=== PATIENT | male | born 1950 | race Caucasian/White ===

== ENCOUNTER 2017-02-21 15:12 | Inpatient (IN) | payer BC ==
[~2017-02-21] VITALS: Ht 177.8 cm; Wt 89.5 kg
[2017-02-21 15:42] LABS: BASE EXCESS -1.2 mEq/L (-3 to +3); BICARBONATE 24.8 mEq/L (22-26); COMMENTS - BLOOD GASES A+C+; DEVICE NC; METHEMOGLOBIN 0.9 % (0-1.5); O2 FLOW 9 L/MIN; PCO2 45 mm Hg (35-45); PO2 75 mm Hg (80-100); SITE RR; TOTAL RESP RATE 28 resp/min; pH 7.35 (7.35-7.45)
[2017-02-21 15:44] LABS: EOSINOPHIL (%) 0.4 % (0-5); EOSINOPHIL COUNT 0.1 K/uL (0-0.3); HEMATOCRIT 49.9 % (38.0-50.0); IMMATURE GRANULOCYTE (%) 0.4 % (0.0-0.7); IMMATURE GRANULOCYTE COUNT 0.1 K/uL; INSTRUMENT ABS NEUTROPHIL CT 10.3 K/uL; LYMPHOCYTE COUNT 1.8 K/uL (1.0-2.8); MCH 31.1 PG (29.0-34.0); MCHC 33.1 G/DL (30.0-36.0); MEAN PLAT.VOLUME 8.9 uM^3 (9.0-12.4); MONOCYTE (%) 12.2 % (3-12); MONOCYTE COUNT 1.7 K/uL (0-0.8); NEUTROPHIL (%) 73.7 % (45-76); NEUTROPHIL COUNT 10.3 K/uL (1.8-6.4); PLATELET COUNT 238 K/uL (156-360); RBC DIS.WIDTH-CV 13.6 % (11.8-14.6); RBC DIS.WIDTH-SD 47.1 % (39-53); RED BLOOD COUNT 5.31 M/uL (4.00-5.50)
[2017-02-21 15:47] LABS: CREATININE 0.7 mg/dL (0.6-1.3); POTASSIUM 4.3 mEq/L (3.7-5.4)
[2017-02-21 15:49] LABS: INTER. NORMALIZED RATIO 1.1; PROTHROMBIN TIME 12.9 SEC (10.2-12.9)
[2017-02-21 15:52] LABS: PTT 33.9 SEC (25-37)
[2017-02-21 15:54] LABS: CHLORIDE 100 mEq/L (99-109); POTASSIUM 4.2 mEq/L (3.7-5.4); SODIUM 135 mEq/L (136-147)
[2017-02-21 15:56] LABS: GLUCOSE 100 mg/dL (70-99)
[2017-02-21 15:57] LABS: ANION GAP 11 MEQ/L (2-14)
[2017-02-21 16:00] LABS: GFR ESTIMATE (CALCULATED) > 59 mL/min/
[2017-02-21 16:01] LABS: UREA NITROGEN (BUN) 10 mg/dL (9-23)
[2017-02-21 16:02] LABS: CREATINE KINASE 132 IU/L (1-294); TOTAL CK 132 IU/L (1-294)
[2017-02-21 16:04] LABS: TROP-I INTERPRETATION NEGATIVE; TROPONIN-I 0.02 ng/mL (0.0-0.30)
[2017-02-21 16:08] LABS: CK-MB 4.5 ng/mL (0.0-4.9)
[2017-02-21] MEDS ORDERED: LITE COAT ASPI325 M1 PO (17:50)
[2017-02-21] MEDS ORDERED: BENADRYL25 MG PO (17:50)
[2017-02-21 22:38] LABS: TROP-I INTERPRETATION NEGATIVE; TROPONIN-I 0.02 ng/mL (0.0-0.30)
[2017-02-22 04:01] LABS: HEMATOCRIT 47.2 % (38.0-50.0); MCH 31.4 PG (29.0-34.0); MCHC 33.5 G/DL (30.0-36.0); MCV 93.8 FL (86-99); MEAN PLAT.VOLUME 9.3 uM^3 (9.0-12.4); PLATELET COUNT 194 K/uL (156-360); RBC DIS.WIDTH-CV 13.9 % (11.8-14.6); RBC DIS.WIDTH-SD 48.1 % (39-53); RED BLOOD COUNT 5.03 M/uL (4.00-5.50); WHITE BLOOD COUNT 11.1 K/uL (4.1-10.2)
[2017-02-22 04:11] LABS: CHLORIDE 100 mEq/L (99-109); POTASSIUM 4.5 mEq/L (3.7-5.4); SODIUM 134 mEq/L (136-147)
[2017-02-22 04:14] LABS: ANION GAP 9 MEQ/L (2-14)
[2017-02-22 04:16] LABS: GFR ESTIMATE (CALCULATED) > 59 mL/min/
[2017-02-22 04:17] LABS: GLUCOSE 197 mg/dL (70-99); UREA NITROGEN (BUN) 13 mg/dL (9-23)
[2017-02-22 04:23] LABS: TROP-I INTERPRETATION NEGATIVE; TROPONIN-I 0.01 ng/mL (0.0-0.30)
[2017-02-22 04:44] LABS: HDL CHOLESTEROL 55 MG/DL (Desirable>=40); LDL CHOLESTEROL 75 mg/dL (Desirable<100); NON-HDL CHOLESTEROL 88 mg/dL (Desirable<160); TOTAL CHOLESTEROL 143 mg/dL (Desirable<200); TRIGLYCERIDES 64 MG/DL (Normal: <150)
[2017-02-22 10:15] LABS: ADD MIUA? NO; BILIRUBIN NEGATIVE; BLOOD NEGATIVE; COLOR AMBER ((YELLOW)); GLUCOSE (STRIP) NEGATIVE; KETONES NEGATIVE; LEUKOCYTES NEGATIVE; NITRITE NEGATIVE; PROTEIN (STRIP) 30; SPECIFIC GRAVITY 1.026 (1.000-1.030); UCUL ADDED? NO
[2017-02-22 15:43] VITALS: BP 129/69
[2017-02-22 20:22] VITALS: BP 109/64
[2017-02-22 22:20] VITALS: BP 127/86
[2017-02-23 03:18] VITALS: BP 130/85
[2017-02-23 06:11] LABS: EOSINOPHIL (%) 0.1 % (0-5); HEMATOCRIT 45.6 % (38.0-50.0); IMMATURE GRANULOCYTE (%) 0.7 % (0.0-0.7); IMMATURE GRANULOCYTE COUNT 0.1 K/uL; INSTRUMENT ABS NEUTROPHIL CT 15.3 K/uL; LYMPHOCYTE COUNT 0.3 K/uL (1.0-2.8); MCHC 33.1 G/DL (30.0-36.0); MCV 96.6 FL (86-99); MEAN PLAT.VOLUME 9.6 uM^3 (9.0-12.4); MONOCYTE (%) 5.2 % (3-12); MONOCYTE COUNT 0.9 K/uL (0-0.8); NEUTROPHIL COUNT 15.3 K/uL (1.8-6.4); PLATELET COUNT 220 K/uL (156-360); RBC DIS.WIDTH-CV 14.3 % (11.8-14.6); RED BLOOD COUNT 4.72 M/uL (4.00-5.50); WHITE BLOOD COUNT 16.7 K/uL (4.1-10.2)
[2017-02-23 06:35] LABS: ANION GAP 9 MEQ/L (2-14); CHLORIDE 99 MEQ/L (99-109); GFR ESTIMATE (CALCULATED) > 59 mL/min/ (58.99-99999); GLUCOSE 211 mg/dL (70-99); POTASSIUM 4.6 MEQ/L (3.7-5.4); SAMPLE HEMOLYSIS CHECK 0; SAMPLE ICTERIC CHECK 0; SAMPLE LIPEMIA CHECK 0; SODIUM 137 MEQ/L (136-147); UREA NITROGEN (BUN) 47 mg/dL (9-23)
[2017-02-23 08:18] VITALS: BP 120/74
[2017-02-23 11:06] VITALS: BP 144/78
[2017-02-23 15:22] VITALS: BP 127/73
[2017-02-23 20:15] VITALS: BP 139/81
[2017-02-24] VITALS (7 sets, daily range): BP systolic 119–153; BP diastolic 63–95
[2017-02-24 06:13] LABS: ANION GAP 8 MEQ/L (2-14); CHLORIDE 101 MEQ/L (99-109); GFR ESTIMATE (CALCULATED) > 59 mL/min/ (58.99-99999); GLUCOSE 194 mg/dL (70-99); POTASSIUM 4.8 MEQ/L (3.7-5.4); SAMPLE HEMOLYSIS CHECK 0; SAMPLE ICTERIC CHECK 0; SAMPLE LIPEMIA CHECK 0; SODIUM 140 MEQ/L (136-147); UREA NITROGEN (BUN) 46 mg/dL (9-23)
[2017-02-24 06:49] LABS: EOSINOPHIL (%) 0 % (0-5); HEMATOCRIT 44.3 % (38.0-50.0); IMMATURE GRANULOCYTE (%) 0.9 % (0.0-0.7); IMMATURE GRANULOCYTE COUNT 0.1 K/uL; LYMPHOCYTE COUNT 0.3 K/uL (1.0-2.8); MCH 32.1 PG (29.0-34.0); MCHC 33.6 G/DL (30.0-36.0); MCV 95.5 FL (86-99); MEAN PLAT.VOLUME 9.4 uM^3 (9.0-12.4); MONOCYTE (%) 5.3 % (3-12); MONOCYTE COUNT 0.8 K/uL (0-0.8); NEUTROPHIL (%) 91.5 % (45-76); PLATELET COUNT 215 K/uL (156-360); RBC DIS.WIDTH-CV 14.4 % (11.8-14.6); RBC DIS.WIDTH-SD 50.5 % (39-53); RED BLOOD COUNT 4.64 M/uL (4.00-5.50); WHITE BLOOD COUNT 15.3 K/uL (4.1-10.2)
[2017-02-25 04:00] VITALS: BP 142/88
[2017-02-25 05:53] LABS: HEMATOCRIT 43.7 % (38.0-50.0); MCH 31.8 PG (29.0-34.0); MCV 96.5 FL (86-99); MEAN PLAT.VOLUME 9.2 uM^3 (9.0-12.4); PLATELET COUNT 211 K/uL (156-360); RBC DIS.WIDTH-CV 14.4 % (11.8-14.6); RBC DIS.WIDTH-SD 50.4 % (39-53); RED BLOOD COUNT 4.53 M/uL (4.00-5.50); WHITE BLOOD COUNT 11.7 K/uL (4.1-10.2)
[2017-02-25 06:22] LABS: ANION GAP 9 MEQ/L (2-14); CHLORIDE 100 MEQ/L (99-109); GFR ESTIMATE (CALCULATED) > 59 mL/min/ (58.99-99999); GLUCOSE 180 mg/dL (70-99); SAMPLE HEMOLYSIS CHECK 0; SAMPLE ICTERIC CHECK 0; SAMPLE LIPEMIA CHECK 0; SODIUM 142 MEQ/L (136-147); UREA NITROGEN (BUN) 41 mg/dL (9-23)
[2017-02-25 06:52] VITALS: BP 140/97
[2017-02-25 11:29] VITALS: BP 147/82
[2017-02-25 15:10] VITALS: BP 127/76
[2017-02-25 19:35] VITALS: BP 136/85
[2017-02-25 23:36] VITALS: BP 130/96
[2017-02-26 04:07] VITALS: BP 125/86
[2017-02-26 07:55] VITALS: BP 135/79
[2017-02-26 11:53] VITALS: BP 111/83
[2017-02-26 15:27] VITALS: BP 130/97
[2017-02-26 20:30] VITALS: BP 156/93
[2017-02-26 23:18] VITALS: BP 120/83
[2017-02-27 04:20] VITALS: BP 137/96
[2017-02-27 06:58] VITALS: BP 132/97
[2017-02-27 11:20] VITALS: BP 136/94
[2017-02-27] MEDS ORDERED: LOPRESSOR50 MG PO (12:27)
[2017-02-27] MEDS ORDERED: CARDIZEM CD,CA240 MG PO (12:27)
[2017-02-27] MEDS ORDERED: FAMOTIDINE20 MG PO (12:34)
[2017-02-27] MEDS ORDERED: FUROSEMIDE40 MG PO (12:34)
[2017-02-27] MEDS ORDERED: PREDNISONE5 M1 PO (12:34)
[2017-02-27] MEDS ORDERED: SPIRIVA RESPIMAT4 GM IH (12:34)
[2017-02-27] MEDS ORDERED: AMOX TR-K CLV1 EAC4 PO (12:34)
[2017-02-27] MEDS ORDERED: XOPENEX1.25 MG/0. AEROSOL (12:34)
[2017-02-27] MEDS ORDERED: ADVAIR HFA120 INHALA IH (12:34)
[2017-02-27] MEDS ORDERED: ELIQUIS5 MG PO (12:35)
[2017-02-27] MEDS ORDERED: ASPIR 8181 M1 PO (12:37)
[2017-02-27] MEDS ORDERED: LISINOPRIL2.5 MG PO ×2 (12:44→13:23)
== END 2017-02-27 14:54 | disposition home or self-care (01) | DRG 308 ==
LOC: EME 15:12 → EDOF 19:03 → ENRESERV 19:10 → CANRESERV 02-22 12:29 → ENRESERV 02-22 13:10 → 4EAST 02-22 15:28 → ENPENDDIS 02-27 → 4EAST 02-27 14:54
PROVIDERS: Emergency Medicine; Hospitalist; Internal Medicine
DX: I48.91 Unspecified atrial fibrillation (principal); J44.1 Chronic obstructive pulmonary disease with (acute) exacerbation; J96.01 Acute respiratory failure with hypoxia; I50.43 Acute on chronic combined systolic (congestive) and diastolic (congestive) heart failure; J20.9 Acute bronchitis, unspecified; I25.10 Atherosclerotic heart disease of native coronary artery without angina pectoris; J90 Pleural effusion, not elsewhere classified; J44.0 Chronic obstructive pulmonary disease with (acute) lower respiratory infection; F17.210 Nicotine dependence, cigarettes, uncomplicated; I11.0 Hypertensive heart disease with heart failure; Z91.19 Patient's noncompliance with other medical treatment and regimen; Z83.3 Family history of diabetes mellitus; R00.0 Tachycardia, unspecified; E87.1 Hypo-osmolality and hyponatremia; I50.9 Heart failure, unspecified; Z68.31 Body mass index [BMI] 31.0-31.9, adult
CPT/HCPCS: 36600; 71010; 71275; 80047; 80048; 80061; 81003; 82550; 82553; 82803; 83605; 83880; 84443; 84484; 85025; 85027; 85610; 85730; 87040; 87070; 87205; 93005; 93306; 93970; 94640; 94640 76; 94760; 94799; 99202; 99281; 99285; J1650; J1940; J2270; J2920; J2930; J7050; J7512; J7644